=== PATIENT | female | born 1995 | race Native Hawaiian/Other Pacific Islander ===

== ENCOUNTER 2022-06-17 22:36 | Emergency (ER) | payer MEDICAID ==
[~2022-06-17] VITALS: Ht 145 cm; Wt 63.5 kg
--- NOTE | 2022-06-17 22:53 | ED GI ---
General Chief Complaint: Abdominal/GI Problems Stated Complaint: LOWER ABD PAIN Source of Information: Patient Exam Limitations: No Limitations History of Present Illness Date Seen by Provider: Jun 17, 2022 Time Seen by Provider: 22:52 Initial Comments Patient is a 26-year-old female G3, P3 last delivery 2018 presents with a chief complaint of lower abdominal pain onset 2 days ago. She states that sharp and intermittent. Worse with moving around. She is a little bit nauseous had a little bit of dinner tonight. No fevers or chills. No burning with urination no abnormal vaginal discharge. Had a bout of diarrhea about 2 weeks ago but that spontaneously resolved. She has only had previously on her abdomen. She has implanted control since 2018. She did have a menstrual cycle she states that lasted the whole week last week. She states this is very unusual for her. She takes no daily medications. No allergies to medications. She does not drink or smoke. Currently rates her pain at a "8". All other review of systems reviewed and negative except as stated Timing/Duration: 1-2 Days Severity/Quality: Sharp Location: Suprapubic (Right lower quadrant) Radiation: RLQ Activities at Onset: None Associated Symptoms: Nausea/Vomiting (Slightly decreased appetite) Allergies and Home Medications Allergies Coded Allergies: No Known Drug Allergies (Unverified , 06/17/22) Patient Home Medication List Home Medication List Reviewed: Yes Review of Systems Review of Systems Constitutional: see HPI EENTM: No Symptoms Reported Respiratory: No Symptoms Reported Cardiovascular: No Symptoms Reported Gastrointestinal: Abdominal Pain, Nausea, Poor Appetite Genitourinary: No Symptoms Reported, Other (Abnormal menstrual cycle last week) Musculoskeletal: no symptoms reported Skin: no symptoms reported All Other Systems Reviewed Negative Unless Noted: Yes Physical Exam Vital Signs Vital Signs - First Documented 06/17/22 22:44 Temp 36.6 Pulse 87 Resp 18 B/P (MAP) 111/70 (84) Pulse Ox 98 O2 Delivery Room Air Capillary Refill : Height/Weight/BMI Height: '" Weight: lbs. oz. kg; BMI Method: General Appearance: WD/WN, no apparent distress HEENT: PERRL/EOMI Respiratory: lungs clear, normal breath sounds, no respiratory distress, no accessory muscle use Cardiovascular: regular rate, rhythm Gastrointestinal: soft, abnormal bowel sounds (Quiet); No distended; guarding; No rebound; tenderness (Right lower quadrant) Extremities: normal range of motion, non-tender, normal inspection Neurologic/Psychiatric: alert, normal mood/affect, oriented x 3 Skin: normal color, warm/dry Progress/Results/Core Measures Results/Orders Lab Results Laboratory Tests Test 06/17/22 22:48 06/17/22 23:08 Range/Units Urine Color YELLOW Urine Clarity SL CLOUDY Urine pH 6.0 5-9 Urine Specific [place] >=1.030 1.016-1.022 Urine Protein 1+ H NEGATIVE Urine Glucose (UA) NEGATIVE NEGATIVE Urine Ketones NEGATIVE NEGATIVE Urine Nitrite POSITIVE H NEGATIVE Urine Bilirubin NEGATIVE NEGATIVE Urine Urobilinogen 0.2 < = 1.0 MG/DL Urine Leukocyte Esterase NEGATIVE NEGATIVE Urine RBC (Auto) 3+ H NEGATIVE Urine RBC NONE /HPF Urine WBC 0-2 /HPF Urine Squamous Epithelial Cells 0-2 /HPF Urine Crystals NONE /LPF Urine Bacteria LARGE H /HPF Urine Casts NONE /LPF Urine Mucus SMALL H /LPF Urine Culture Indicated YES White Blood Count 8.1 4.3-11.0 10^3/uL Red Blood Count 5.09 3.80-5.11 10^6/uL Hemoglobin 12.1 11.5-16.0 g/dL Hematocrit 38 35-52 % Mean Corpuscular Volume 75 L 80-99 fL Mean Corpuscular Hemoglobin 24 L 25-34 pg Mean Corpuscular Hemoglobin Concent 32 32-36 g/dL Red Cell Distribution Width 13.6 10.0-14.5 % Platelet Count 359 130-400 10^3/uL Mean Platelet Volume 9.7 9.0-12.2 fL Immature Granulocyte % (Auto) 0 % Neutrophils (%) (Auto) 65 42-75 % Lymphocytes (%) (Auto) 27 12-44 % Monocytes (%) (Auto) 6 0-12 % Eosinophils (%) (Auto) 2 0-10 % Basophils (%) (Auto) 0 0-10 % Neutrophils # (Auto) 5.3 1.8-7.8 10^3/uL Lymphocytes # (Auto) 2.2 1.0-4.0 10^3/uL Monocytes # (Auto) 0.5 0.0-1.0 10^3/uL Eosinophils # (Auto) 0.1 0.0-0.3 10^3/uL Basophils # (Auto) 0.0 0.0-0.1 10^3/uL Immature Granulocyte # (Auto) 0.0 0.0-0.1 10^3/uL Sodium Level 137 135-145 MMOL/L Potassium Level 3.5 L 3.6-5.0 MMOL/L Chloride Level 106 98-107 MMOL/L Carbon Dioxide Level 19 L 21-32 MMOL/L Anion Gap 12 5-14 MMOL/L Blood Urea Nitrogen 10 7-18 MG/DL Creatinine 0.76 0.60-1.30 MG/DL Estimat Glomerular Filtration Rate 111 BUN/Creatinine Ratio 13 Glucose Level 127 H 70-105 MG/DL Calcium Level 9.1 8.5-10.1 MG/DL My Orders Orders - ARTEMIO REED MD Ed Iv/Invasive Line Start (06/17/22 22:57) Cbc With Automated Diff (06/17/22 22:57) Basic Metabolic Panel (06/17/22 22:57) Ua Culture If Indicated (06/17/22 22:57) Ketorolac Injection (Toradol Injection) (06/17/22 23:00) Ondansetron Injection (Zofran Injectio (06/17/22 23:00) Urine Culture (06/17/22 22:48) Medications Given in ED Current Medications Medications Dose Ordered Sig/Kaitlynn Route Start Time Stop Time Status Last Admin Dose Admin Ketorolac Tromethamine 15 mg ONCE ONCE IVP 06/17/22 23:00 06/17/22 23:01 DC 06/17/22 23:10 15 MG Ondansetron HCl 4 mg ONCE ONCE IVP 06/17/22 23:00 06/17/22 23:01 DC 06/17/22 23:09 4 MG Vital Signs/I&O 06/17/22 22:44 Temp 36.6 Pulse 87 Resp 18 B/P (MAP) 111/70 (84) Pulse Ox 98 O2 Delivery Room Air Progress Progress Note : Time: 23:49 Progress Note Patient seen and examined, 26-year-old with right lower quadrant abdominal discomfort. She had basic laboratory studies done with urinalysis and bedside test. test is negative, she does have 3+ bacteria, nitrites and blood in her urine. Treated with Toradol and has complete resolution of her pain. No flank pain. Exam does not support the need for CT scan to rule out kidney stone currently. It is still on the differential. I advised the patient we would send her home with antibiotics and recommendations for increased water intake and ibuprofen. She is comfortable with this plan of care. Again she feels completely better. Return precautions discussed. All questions are sought and answered Departure Impression Primary Impression: Abdominal pain Qualified Codes: R10.31 - Right lower quadrant pain Additional Impression: Urinary tract infection Qualified Codes: N39.0 - Urinary tract infection, site not specified; R31.9 - Hematuria, unspecified Disposition: HOME, SELF-CARE Condition: Improved Departure-Patient Inst. Decision time for Depature: 23:51 Referrals: [facility] (PCP/Family) Primary Care Physician Patient Instructions: Urinary Tract Infections in Adults Add. Discharge Instructions: Drink plenty of water for the next 24 to 48 hours to stay well-hydrated. You need to increase water intake while taking this antibiotic. Take the Bactrim, 1 tablet twice a day for the next 5 days. You can take [id number] ibuprofen, 3 tablets which is 600 mg every 6 hours with food as needed for pain. If the pain is worsening, if you notice more blood in your urine, if you develop a fever or vomiting please come back to the emergency department for reevaluation. Scripts Sulfamethoxazole/Trimethoprim (Bactrim Ds Tablet) 1 Each Tablet 1 EACH PO BID for 5 Days, #9 TAB Prov: ARTEMIO REED MD 06/17/22 Copy Copies To 1: SISSY MUJICA KATHRYN M MD Jun 17, 2022 22:53
[2022-06-17] MEDS ORDERED: KETOROLAC 30 MG/ML VIAL IVP ONE (23:00)
[2022-06-17] MEDS ORDERED: ONDANSETRON 4 MG/2 ML (SDV) Z0FRAN IVP ONE (23:00)
[2022-06-17 23:08] LABS: BILIRUBIN,URINE NEGATIVE (NEGATIVE); CLARITY,URINE SL CLOUDY; COLOR,URINE YELLOW; GLUCOSE, URINE (UA) NEGATIVE (NEGATIVE); KETONES,URINE NEGATIVE (NEGATIVE); LEUKOCYTE ESTERASE ,URINE NEGATIVE (NEGATIVE); NITRITE,URINE POSITIVE (NEGATIVE); PROTEIN,URINE 1+ (NEGATIVE)
[2022-06-17 23:18] LABS: BASOPHILS % (AUTO) 0 % (0-10); EOSINOPHILS # (AUTO) 0.1 10^3/uL (0.0-0.3); EOSINOPHILS % (AUTO) 2 % (0-10); HEMATOCRIT 38 % (35-52); HEMOGLOBIN 12.1 g/dL (11.5-16.0); LYMPHOCYTES # (AUTO) 2.2 10^3/uL (1.0-4.0); LYMPHOCYTES % (AUTO) 27 % (12-44); MEAN CORPUSCULAR HEMOGLOBIN 24 pg (25-34); MEAN CORPUSCULAR HGB CONC 32 g/dL (32-36); MEAN CORPUSCULAR VOLUME 75 fL (80-99); MEAN PLATELET VOLUME 9.7 fL (9.0-12.2); MONOCYTES # (AUTO) 0.5 10^3/uL (0.0-1.0); MONOCYTES % (AUTO) 6 % (0-12); NEUTROPHILS # (AUTO) 5.3 10^3/uL (1.8-7.8); NEUTROPHILS % (AUTO) 65 % (42-75); PLATELET COUNT 359 10^3/uL (130-400); WHITE BLOOD COUNT 8.1 10^3/uL (4.3-11.0)
[2022-06-17 23:21] LABS: BACTERIA,URINE LARGE /HPF; SQUAMOUS EPITHELIAL CELL,UR 0-2 /HPF; WBC,URINE 0-2 /HPF
[2022-06-17 23:31] LABS: POTASSIUM 3.5 MMOL/L (3.6-5.0)
[2022-06-17 23:33] LABS: CALCIUM 9.1 MG/DL (8.5-10.1)
[2022-06-17 23:37] LABS: CREATININE SERUM 0.76 MG/DL (0.60-1.30)
[2022-06-17] MEDS ORDERED: SULF1TAB38 PO (23:53)
[2022-06-17 23:58] VITALS: BP 101/66
[2022-06-18] MEDS ORDERED: TRIM/SULFAMETH 160/800 (SEPTRA DS) TAB PO ONE
== END 2022-06-17 23:59 | disposition home or self-care (01) ==
LOC: ER 22:41
DX: N39.0 Urinary tract infection, site not specified (principal); R31.9 Hematuria, unspecified; R82.71 Bacteriuria; Z32.02 Encounter for pregnancy test, result negative
CPT/HCPCS: 36415; 80048; 81000; 85025; 87077; 87088; 87186; 99283

== ENCOUNTER 2022-09-06 06:47 | Emergency (ER) | payer MEDICAID ==
[~2022-09-06] VITALS: Ht 146 cm; Wt 67.0 kg
[~2022-09-06 06:47] MED LIST: SULF1TAB38 PO
[2022-09-06] MEDS ORDERED: IBUPROFEN 600 MG (MOTRIN) TAB PO ONE (07:30)
--- NOTE | 2022-09-06 07:31 | ED Abdominal Pain ---
General Chief Complaint: Abdominal/GI Problems Stated Complaint: ABD CRAMPS Nursing Triage Note: Patient ambulatory to room 3 w c/o continuous sharp lower abdominal pain that started last night. Source of Information: Patient Exam Limitations: No Limitations History of Present Illness Date Seen by Provider: Sep 06, 2022 Time Seen by Provider: 07:20 Initial Comments Patient is a 26-year-old female who presents to the emergency room with a chief complaint of sharp lower abdominal pain onset last night. Patient endorses urinary frequency. No dysuria no abnormal vaginal discharge. She has an IUD in place and usually only has "spotting". She states it is 5 years old. No fevers, chills, nausea or vomiting. Normal bowel movements. She states the pain feels similar to when she had a urinary tract infection in May however it is worse today. She has not taken anything for the pain at all, aspirin, Tylenol or ibuprofen. Prior abdominal surgery . Timing/Duration: 12 Hours Severity/Quality: Moderate, Cramping Location: Suprapubic Radiation: Back (low back) Activities at Onset: None Associated Symptoms: Back Pain Allergies and Home Medications Allergies Coded Allergies: No Known Drug Allergies (Unverified , 06/17/22) Patient Home Medication List Home Medication List Reviewed: Yes Sulfamethoxazole/Trimethoprim (Bactrim Ds Tablet) 1 Each Tablet, 1 EACH PO BID Prescribed by: ARTEMIO REED on 06/17/22 [id number] Review of Systems Review of Systems Constitutional: see HPI EENTM: No Symptoms Reported Respiratory: No Symptoms Reported Cardiovascular: No Symptoms Reported Gastrointestinal: Abdominal Pain Genitourinary: Frequency Musculoskeletal: no symptoms reported Skin: no symptoms reported All Other Systems Reviewed Negative Unless Noted: Yes Past [facility]-Olajjc-Ogbjil Hx Patient Social History Tobacco Use?: No Substance use?: No Alcohol Use?: No Immunizations Up To Date First/Initial COVID19 Vaccinat: unknown Second COVID19 Vaccination [place]: YES COVID19 Vaccine [employer] Supervisor: [employer] Past Medical History Surgery/Hospitalization HX: C SECT X 3 Physical Exam Vital Signs Vital Signs - First Documented 09/06/22 07:06 Temp 36.2 Pulse 79 Resp 16 B/P (MAP) 116/81 (93) O2 Delivery Room Air Capillary Refill : Less Than 3 Seconds Height/Weight/BMI Height: '" Weight: lbs. oz. kg; 31.00 BMI Method: General Appearance: WD/WN, no apparent distress HEENT: PERRL/EOMI Respiratory: lungs clear, normal breath sounds, no respiratory distress, no accessory muscle use Cardiovascular: regular rate, rhythm Gastrointestinal: soft, tenderness (Suprapubic tenderness, no involuntary guarding or rebound) Back: no CVA tenderness Neurologic/Psychiatric: alert, normal mood/affect, oriented x 3 Skin: normal color, warm/dry Progress/Results/Core Measures Results/Orders Lab Results Laboratory Tests Test 09/06/22 07:15 Range/Units Urine Color YELLOW Urine Clarity SL CLOUDY Urine pH 6.0 5-9 Urine Specific [place] >=1.030 1.016-1.022 Urine Protein TRACE H NEGATIVE Urine Glucose (UA) NEGATIVE NEGATIVE Urine Ketones NEGATIVE NEGATIVE Urine Nitrite NEGATIVE NEGATIVE Urine Bilirubin NEGATIVE NEGATIVE Urine Urobilinogen 0.2 < = 1.0 MG/DL Urine Leukocyte Esterase NEGATIVE NEGATIVE Urine RBC (Auto) 3+ H NEGATIVE Urine RBC 5-10 H /HPF Urine WBC RARE /HPF Urine Squamous Epithelial Cells 2-5 /HPF Urine Crystals NONE /LPF Urine Bacteria FEW H /HPF Urine Casts NONE /LPF Urine Mucus MODERATE H /LPF Urine Culture Indicated YES My Orders Orders - ARTEMIO REED MD Ua Culture If Indicated (09/06/22 07:30) Urine Bedside (09/06/22 07:30) Ibuprofen Tablet (Motrin Tablet) (09/06/22 07:30) Urine Culture (09/06/22 07:15) Medications Given in ED Current Medications Medications Dose Ordered Sig/Kaitlynn Route Start Time Stop Time Status Last Admin Dose Admin Ibuprofen 600 mg ONCE ONCE PO 09/06/22 07:30 09/06/22 07:31 DC 09/06/22 07:40 600 MG Vital Signs/I&O 09/06/22 07:06 Temp 36.2 Pulse 79 Resp 16 B/P (MAP) 116/81 (93) O2 Delivery Room Air Blood Pressure Mean: 93 Departure Impression Primary Impression: Abdominal pain Qualified Codes: R10.30 - Lower abdominal pain, unspecified Additional Impression: Hematuria Qualified Codes: R31.9 - Hematuria, unspecified Disposition: 01 HOME, SELF-CARE Condition: Stable Departure-Patient Inst. Referrals: [facility] (PCP/Family) Primary Care Physician Patient Instructions: Blood in Urine (Hematuria), Adult ED, Urinary Tract Infection, Adult (DC) Add. Discharge Instructions: Take [id number] ibuprofen, 3 tablets which is 600 mg every 6 hours with food as needed for pain. You can also take "Azo" which is available [id number] for bladder spasms. Please follow packaging instructions. This will turn your urine bright orange. Take the antibiotics as prescribed, Bactrim DS 1 tablet twice a day for 3 days. Drink lots of water while taking this medication. If you are not experiencing any improvement in symptoms by Saturday or if you develop fever, vomiting, worsening pain please return to the emergency room for reevaluation. Scripts Sulfamethoxazole/Trimethoprim (Bactrim Ds Tablet) 1 Each Tablet 1 EACH PO BID for 3 Days, #6 TAB Prov: ARTEMIO REED MD 09/06/22 Copy Copies To 1: SISSY MUJICA KATHRYN M MD Sep 06, 2022 07:31
[2022-09-06 07:35] LABS: BILIRUBIN,URINE NEGATIVE (NEGATIVE); CLARITY,URINE SL CLOUDY; COLOR,URINE YELLOW; GLUCOSE, URINE (UA) NEGATIVE (NEGATIVE); KETONES,URINE NEGATIVE (NEGATIVE); LEUKOCYTE ESTERASE ,URINE NEGATIVE (NEGATIVE); NITRITE,URINE NEGATIVE (NEGATIVE); PROTEIN,URINE TRACE (NEGATIVE)
[2022-09-06 07:46] LABS: WBC,URINE RARE /HPF
[2022-09-06 07:47] LABS: BACTERIA,URINE FEW /HPF
[2022-09-06] MEDS ORDERED: SULF1TAB38 PO (08:06)
[2022-09-06 08:25] VITALS: BP 110/72
== END 2022-09-06 08:25 | disposition home or self-care (01) ==
LOC: EDUNIT# 06:47 → ER 06:50
DX: R10.30 Lower abdominal pain, unspecified (principal); R31.9 Hematuria, unspecified
CPT/HCPCS: 81000; 84703; 87088; 99283